=== PATIENT | male | born 1985 | race African-American/Black ===

== ENCOUNTER 2018-07-19 02:33 | Emergency (ER) | payer OTHER ==
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
[2018-07-19 02:44] VITALS: TEMP 98; BMI 27.9
[2018-07-19] MEDS ORDERED: LIDOCAINE 1%/EPI 1:100000 (20 ML MULTI DOSE VIAL) ONE (02:45)
[2018-07-19] MEDS ORDERED: DIPHTH,PERTUSS(ACELL),TET VAC 0.5 ML VIAL IM ONE (02:54)
[2018-07-19 04:28] VITALS: BP 125/89; PULSE 98
== END 2018-07-19 04:27 | disposition home or self-care (01) ==
LOC: JER 02:33
PROC: 3E0234Z Introduction of Serum, Toxoid and Vaccine into Muscle, Percutaneous Approach (ICD-10-PCS; principal; 2018-07-19)
PROC: 0CQ0XZZ Repair Upper Lip, External Approach (ICD-10-PCS; 2018-07-19)
DX: S01.511A Laceration without foreign body of lip, initial encounter (principal); X99.8XXA Assault by other sharp object, initial encounter; Y93.89 Activity, other specified; Y92.414 Local residential or business street as the place of occurrence of the external cause; Y99.8 Other external cause status; Y07.9 Unspecified perpetrator of maltreatment and neglect
CPT/HCPCS: 12011-25; 70450-TC; 70486-TC; 72125-TC; 90471; 99284-25

== ENCOUNTER 2019-10-23 19:08 | Inpatient (IN) | payer OTHER ==
[2019-10-23] MEDS ORDERED: ONDANSETRON 4 MG/2 ML VIAL IVPUSH ONE (19:31)
[2019-10-23] MEDS ORDERED: FOLIC ACID INJECTION - 1 MG, THIAMINE HCL 100 MG, MULTIVIT INJECTION ADULT 10 ML in SOD... IVPB ONE (19:31)
[2019-10-23] MEDS ORDERED: PANTOPRAZOLE SODIUM 40 MG VIAL IVPUSH ONE (19:31)
--- NOTE | 2019-10-23 19:37 | PDOC ---
History of Present Illness - General Chief Complaint: Pain, Acute Stated Complaint: VOMITING/ABD/PAIN Time Seen by Provider: 10/23/19 19:24 History Source: Patient Exam Limitations: No Limitations - History of Present Illness Travel History: No Initial Comments: 10/23/19 19:35 33-year-old male with no past medical history presents to ED with complaints of generalized fatigue, nausea and vomiting upper abdominal cramping and inability to tolerate p.o. Patient states drinks alcohol on a daily basis which she is able to hold down without vomiting patient denies change in urine pattern, diarrhea, fever, headache, head injury, chest pain, shortness of breath. Mother states patient has been an active alcoholic for the past 2 years and normally drinks with his friends and sleeps during the day. Patient denies any other drug use. Patient has not seeking alcohol detox or rehab and just wants to stop vomiting. Timing/Duration: reports: intermittent Quality: reports: mild, other (Tightness to the upper abdomen) Pain Radiation: reports: no radiation Activities at Onset: reports: none Aggravating Factors: improves with: None Alleviating Factors: improves with: None Past History - Travel History Traveled outside of the country in the last 30 days: No Close contact w/someone who was outside of country & ill: No - Medical History Allergies/Adverse Reactions: Allergies Allergy/AdvReac Type Severity Reaction Status Date / Time No Known Allergies Allergy Verified 07/19/18 02:42 Home Medications: Ambulatory Orders Ibuprofen [Motrin -] 600 mg PO QID #120 tablet 07/19/18 COPD: No - Psycho-Social/Smoking History Patient Lives Alone: No Lives with/in: parents Smoking History: Never smoked Have you smoked in the past 12 months: No - Substance Abuse Hx (Audit-C & DAST Scrn) How often the patient has a drink containing alcohol: 4 0r more times/wk Number of drinks the patient has on a typical day: 1 or 2 How often the patient has six or more drinks on one occasion: Daily or almost daily Score: In Men: 4 or > Positive; In Women: 3 or > Positive: 8 Screen Result (Pos requires Nsg. Audit-10AR): Positive In the last yr the pt used illegal drug/Rx for NonMed reason: No Score: Yes response is considered Positive: 0 Screen Result (Positive result requires Nsg. DAST-10): Negative Review of Systems - Review of Systems Able to Perform ROS?: Yes Constitutional: Yes: Loss of Appetite, Weakness HEENTM: No: Symptoms Reported Respiratory: No: Symptoms reported Cardiac (ROS): No: Symptoms Reported ABD/GI: Yes: Nausea, Poor Appetite, Poor Fluid Intake, Vomiting, Abdominal cramping : No: Symptoms Reported Musculoskeletal: Yes: Muscle Weakness Integumentary: No: Symptoms Reported Neurological: Yes: Weakness Endocrine: No: Symptoms Reported Hematologic/Lymphatic: No: Symptoms Reported *Physical Exam - Vital Signs Last Vital Signs Temp Pulse Resp BP Pulse Ox 98.8 F 120 H 19 123/87 99 10/23/19 19:14 10/23/19 19:14 10/23/19 19:14 10/23/19 19:14 10/23/19 19:14 - Physical Exam General Appearance: Yes: Nourished, Appropriately Dressed. No: Apparent Distress, Alcohol on Breath HEENT: positive: EOMI, Pharynx Normal (dry) Neck: positive: Supple Respiratory/Chest: positive: Lungs Clear, Normal Breath Sounds. negative: R espiratory Distress, Accessory Muscle Use Cardiovascular: positive: Regular Rhythm, Tachycardia. negative: Murmur Gastrointestinal/Abdominal: positive: Soft. negative: Tenderness Musculoskeletal: negative: CVA Tenderness Extremity: positive: Normal Inspection Integumentary: positive: Normal Color, Dry, Warm Neurologic: positive: Alert, Motor Strength 5/5 (ambulatory) ED Treatment Course - LABORATORY CBC & Chemistry Diagram: 10/26/19 05:16 10/29/19 06:12 Medical Decision Making - Medical Decision Making 10/23/19 19:39 Chief complaint: Nausea vomiting weakness with poor p.o. intake except for alcohol intake for the past 10 days. Patient admits to daily alcohol use but does not admit to being an alcoholic despite his mother disagreeing. No other complaints. Last drink was this morning Exam: Patient appears dry and lethargic but otherwise normal physical exam with no abdominal tenderness. Patient also tachycardic upon arrival without signs of DT or withdrawal presently Plan: Labs, urine, banana bag, meds Discharge - Discharge Information Problems reviewed: Yes Clinical Impression/Diagnosis: AA (alcohol abuse) Alcoholic pancreatitis Qualifiers: Chronicity: acute Acute pancreatitis complication: unspecified Qualified Code(s): K85.20 - Alcohol induced acute pancreatitis without necrosis or infection Nausea & vomiting Qualifiers: Vomiting type: unspecified Vomiting Intractability: non-intractable Qualified Code(s): R11.2 - Nausea with vomiting, unspecified Condition: Good Disposition: HOME - Follow up/Referral - Patient Discharge Instructions - Post Discharge Activity
[2019-10-23] MEDS ORDERED: PANTOPRAZOLE SODIUM 40 MG VIAL ONE (19:56)
[2019-10-23] MEDS ORDERED: FAMOTIDINE 20 MG/50 ML IVPB 20 MG/50 ML MG IVPB ONE ×2 (20:02→20:15)
--- NOTE | 2019-10-23 20:12 | PDOC ---
*Physical Exam - Vital Signs Last Vital Signs Temp Pulse Resp BP Pulse Ox 98.8 F 120 H 19 123/87 99 10/23/19 19:14 10/23/19 19:14 10/23/19 19:14 10/23/19 19:14 10/23/19 19:14 - Physical Exam General Appearance: Yes: Nourished, Appropriately Dressed. No: Apparent Distress HEENT: positive: Normal ENT Inspection Respiratory/Chest: negative: Respiratory Distress, Accessory Muscle Use Musculoskeletal: positive: Normal Inspection Extremity: positive: Normal Inspection, Normal Range of Motion Integumentary: positive: Normal Color Neurologic: positive: Fully Oriented, Alert, Normal Mood/Affect, Normal Respo nse, Motor Strength 06/14 ED Treatment Course - LABORATORY CBC & Chemistry Diagram: 10/23/19 20:11 10/23/19 20:11 Medical Decision Making - Medical Decision Making 10/23/19 20:10 I assumed care of this 33-year-old male with a history of alcohol abuse presented with complaint of one-week history of persistent nausea and vomiting and persistently drinking. Patient reported only able to keep alcohol down but vomited everything else. Patient pending labs. Banana bag, Pepcid, Protonix and Zofran ordered from previous provider for nausea and vomiting with from alcohol . 10/23/19 21:21 CBC shows no acute abnormality. Chemistry lab shows severely elevated lipase with elevated AST and low potassium of 2.8. Patient labs consistent with alcoholic pancreatitis. Will replace sodium and potassium. Will order ultrasound to evaluate for pancreatitis and will admit patient to medicine for alcohol pancreatitis Discharge - Discharge Information Problems reviewed: Yes Clinical Impression/Diagnosis: AA (alcohol abuse) Alcoholic pancreatitis Qualifiers: Chronicity: acute Acute pancreatitis complication: unspecified Qualified Code(s): K85.20 - Alcohol induced acute pancreatitis without necrosis or infection Nausea & vomiting Qualifiers: Vomiting type: unspecified Vomiting Intractability: non-intractable Qualified Code(s): R11.2 - Nausea with vomiting, unspecified Condition: Stable - Admission Yes - Follow up/Referral Referrals: Juan Pablo Noel MD [Primary Care Provider] - - Patient Discharge Instructions - Post Discharge Activity
[2019-10-23 20:36] LABS: BASO % 0.6 % (0-2.0); EOS % 0.1 % (0-4.5); HEMATOCRIT 39.6 % (35.4-49); HEMOGLOBIN 13.4 GM/dL (11.7-16.9); LYMPH % 5.3 % (8-40); MCH 35.9 pg (25.7-33.7); MCHC 33.9 g/dl (32.0-35.9); MEAN CELL VOLUME 105.9 fl (80-96); MEAN PLT VOLUME 8.6 fl (7.5-11.1); MONO % 12.3 % (3.8-10.2); NEUT % 81.7 % (42.8-82.8); PLATELET COUNT 212 K/MM3 (134-434); RBC 3.74 M/mm3 (4.00-5.60); RDW 15.9 % (11.9-15.9); WHITE BLOOD COUNT 8.2 K/mm3 (4.0-10.0)
[2019-10-23 21:01] LABS: ALBUMIN 3.7 g/dl (3.4-5.0); BLOOD UREA NITROGEN 12.6 mg/dL (7-18); CREATININE 0.8 mg/dL (0.55-1.3); MAGNESIUM 2.2 mg/dL (1.8-2.4)
[2019-10-23 21:09] LABS: ANISOCYTOSIS 2+; MACROCYTOSIS 2+
[2019-10-23 21:11] LABS: POTASSIUM 2.8 mmol/L (3.5-5.1)
[2019-10-23] MEDS ORDERED: SODIUM CHLORIDE 0.9%/KCL 20 MEQ/1,000 ML INFUS.BAG IV SCH (21:15)
[2019-10-23] MEDS ORDERED: POTASSIUM CHLORIDE TABS 20 MEQ TABLET.ER (FP) PO ONE (21:21)
[2019-10-23] MEDS ORDERED: POTASSIUM CHLORIDE ORAL LIQUID 20 MEQ/15 ML PO ONE (21:24)
[2019-10-23] MEDS ORDERED: POTASSIUM CHLORIDE ORAL LIQUID 20 MEQ/15 ML ONE (21:25)
[2019-10-24 01:12] LABS: POTASSIUM 2.9 mmol/L (3.5-5.1)
[2019-10-24] MEDS: HEPARIN NA (PORCINE) 5,000 UNITS/ML 1ML VIAL SQ SCH ×3 (10:12→22:56)
[2019-10-24] MEDS ORDERED: HEPARIN NA (PORCINE) 5,000 UNITS/ML 1ML VIAL ONE (10:22)
[2019-10-24 12:17] LABS: BASO % 0.5 % (0-2.0); EOS % 0.2 % (0-4.5); HEMATOCRIT 34.5 % (35.4-49); HEMOGLOBIN 11.7 GM/dL (11.7-16.9); MCH 36.1 pg (25.7-33.7); MCHC 33.9 g/dl (32.0-35.9); MEAN CELL VOLUME 106.6 fl (80-96); MONO % 13.4 % (3.8-10.2); NEUT % 76.9 % (42.8-82.8); PLATELET COUNT 175 K/MM3 (134-434); RBC 3.24 M/mm3 (4.00-5.60); RDW 15.9 % (11.9-15.9); WHITE BLOOD COUNT 7.5 K/mm3 (4.0-10.0)
[2019-10-24 12:49] LABS: AMYLASE 100 U/L (25-115)
[2019-10-24 12:53] LABS: ALBUMIN 3.1 g/dl (3.4-5.0); BILIRUBIN,TOTAL 0.9 mg/dL (0.2-1); BLOOD UREA NITROGEN 8.5 mg/dL (7-18); CALCIUM 8.6 mg/dL (8.5-10.1); CREATININE 0.6 mg/dL (0.55-1.3); TOT PROT 5.9 g/dl (6.4-8.2)
[2019-10-24 12:54] LABS: LIPASE 4160 U/L (73-393)
[2019-10-24 13:10] LABS: POTASSIUM 2.9 mmol/L (3.5-5.1)
[2019-10-24] MEDS ORDERED: POTASSIUM CHLORIDE TABS 20 MEQ TABLET.ER (FP) PO ONE (13:10)
[2019-10-24] MEDS ORDERED: DEXTROSE 5%-0.45% SALINE 1,000 ML IV SCH (13:15)
[2019-10-24] MEDS: THIAMINE HCL 100 MG TABLET (FP) PO SCH (15:00)
[2019-10-24] MEDS: FOLIC ACID 1 MG TABLET (FP) PO SCH (15:00)
[2019-10-24] MEDS: chlordiazePOXIDE HCL 25 MG CAPSULE PO SCH ×2 (15:00→22:56)
[2019-10-24] MEDS ORDERED: THIAMINE HCL 100 MG TABLET (FP) ONE (15:06)
[2019-10-24] MEDS ORDERED: chlordiazePOXIDE HCL 25 MG CAPSULE ONE (15:06)
[2019-10-24] MEDS ORDERED: KCL 10 MEQ IVPB 10 MEQ/100 ML INFUS.BAG IVPB ONE ×2 (15:07→16:25)
[2019-10-24] MEDS ORDERED: POTASSIUM CHLORIDE ORAL LIQUID 20 MEQ/15 ML ONE (15:07)
[2019-10-24] MEDS: D5-1/2NS+20 MEQ KCL - 20 MEQ/1,000 ML INFUS.BAG IV SCH (15:18)
[2019-10-24] MEDS: KCL 10 MEQ IVPB 10 MEQ/100 ML INFUS.BAG IVPB SCH ×3 (15:24→17:29)
--- NOTE | 2019-10-24 15:45 | CON.GI ---
Consult Consult Specialty:: GI - History of Present Illness History of Present Illness: 33 y/o male was asked to be see because of intractable vomiting. He has been drinking alcohol excessively the past two years. He drinks 1-2 pints of liquor per day. He denies need of any eye waste duster and withdrawal symptoms. - Alcohol/Substance Use Hx Alcohol Use: No - Smoking History Smoking history: Never smoked Have you smoked in the past 12 months: No Home Medications - Allergies Allergies/Adverse Reactions: Allergies Allergy/AdvReac Type Severity Reaction Status Date / Time No Known Allergies Allergy Verified 07/19/18 02:42 - Home Medications Home Medications: Ambulatory Orders Ibuprofen [Motrin -] 600 mg PO QID #120 tablet 07/19/18 Physical Exam-GI Vital Signs: Vital Signs Temperature 98.7 F 10/24/19 09:44 Pulse Rate 88 10/24/19 09:44 Respiratory Rate 10/24/19 09:44 Blood Pressure 140/89 10/24/19 09:44 O2 Sat by Pulse Oximetry (%) 99 10/24/19 09:44 Constitutional: Yes: No Distress Eyes: Yes: Conjunctiva Clear HENT: Yes: Atraumatic Neck: Yes: Trachea Midline Cardiovascular: Yes: Regular Rate and Rhythm Respiratory: Yes: CTA Bilaterally ...Palpate: Yes: Soft. No: Firm/Rigid, Guarding, Hepatomegaly, Mass, Pulsatile Mass, Splenomegaly, Tenderness Labs: CBC, BMP 10/24/19 11:25 10/24/19 11:25 Problem List - Problems (1) Nausea & vomiting Assessment/Plan: IV Zofran, Pantoprazole and Reglan IV hydration Code(s): R11.2 - NAUSEA WITH VOMITING, UNSPECIFIED Qualifiers: Vomiting type: unspecified Vomiting Intractability: non-intractable Qualified Code(s): R11.2 - Nausea with vomiting, unspecified (2) Alcoholic pancreatitis Assessment/Plan: IV hydration asked to join AA advance diet as tolerated ct of the abdomen and pelvis if not done recently Code(s): K85.20 - ALCOHOL INDUCED ACUTE PANCREATITIS WITHOUT NECROSIS OR INFCT Qualifiers: Chronicity: acute Acute pancreatitis complication: unspecified Qualified Code(s): K85.20 - Alcohol induced acute pancreatitis without necrosis or infection
[2019-10-24] MEDS ORDERED: ONDANSETRON 4 MG/2 ML VIAL IVPB PRN (15:47)
[2019-10-24] MEDS: METOCLOPRAMIDE HCL INJECTION 10 MG/2 ML VIAL IVPB SCH (16:22)
[2019-10-24] MEDS ORDERED: METOCLOPRAMIDE HCL INJECTION 10 MG/2 ML VIAL ONE (16:25)
--- NOTE | 2019-10-24 16:34 | HP ---
Admitting History and Physical - Admission History of Present Illness: Pt is a 33 y/o male w/ PMH significant for EtOH abuse. Pt has been drinking pint of vodka daily for at least 2 yrs. Pt's mother is present who agrees w/ etoh consumption. Pt presents to ED with complaints of generalized fatigue, nausea and vomiting upper abdominal cramping and inability to tolerate p.o. Patient states drinks alcohol on a daily basis which he is able to hold down without vomiting. Pt found to have elevated lipase and K+ 2.8. - Past Medical History Psych: Yes: Addictions - Smoking History Smoking history: Never smoked Have you smoked in the past 12 months: No - Alcohol/Substance Use Hx Alcohol Use: No Home Medications - Allergies Allergies/Adverse Reactions: Allergies Allergy/AdvReac Type Severity Reaction Status Date / Time No Known Allergies Allergy Verified 07/19/18 02:42 - Home Medications Home Medications: Ambulatory Orders Ibuprofen [Motrin -] 600 mg PO QID #120 tablet 07/19/18 Family Medical History Family History: Unremarkable Review of Systems - Review of Systems Constitutional: reports: Loss of Appetite, Weakness Eyes: reports: No Symptoms HENT: reports: No Symptoms Neck: reports: No Symptoms Cardiovascular: reports: No Symptoms Respiratory: reports: No Symptoms Gastrointestinal: reports: Nausea, Vomiting Genitourinary: reports: No Symptoms Physical Examination Vital Signs: Vital Signs Temperature 98.9 F 10/24/19 16:08 Pulse Rate 89 10/24/19 16:08 Respiratory Rate 19 10/24/19 16:08 Blood Pressure 124/91 10/24/19 16:08 O2 Sat by Pulse Oximetry (%) 99 10/24/19 16:08 Eyes: Yes: WNL HENT: Yes: WNL Neck: Yes: WNL, Supple Cardiovascular: Yes: WNL, Regular Rate and Rhythm Respiratory: Yes: WNL, Regular, CTA Bilaterally Gastrointestinal: Yes: WNL, Normal Bowel Sounds, Soft Musculoskeletal: Yes: WNL Extremities: Yes: Other (Slight tremor of b/l hands) Edema: No Neurological: Yes: WNL, Alert, Oriented ...Motor Strength: WNL Labs: CBC, BMP 10/24/19 11:25 10/24/19 11:25 Problem List - Problems (1) Alcoholic pancreatitis Assessment/Plan: Pt has been NPO Will advance diet to clear liquids GI consult noted Long d/w pt and mother about need for etoh cessation Check ct scan abd/pelvis Cont IVF Monitor labs Code(s): K85.20 - ALCOHOL INDUCED ACUTE PANCREATITIS WITHOUT NECROSIS OR INFCT Qualifiers: Chronicity: acute Acute pancreatitis complication: unspecified Qualified Code(s): K85.20 - Alcohol induced acute pancreatitis without necrosis or infection (2) Nausea & vomiting Assessment/Plan: Resolving ont zofran prn Cont protonix Replace K+MOnitor labs Code(s): R11.2 - NAUSEA WITH VOMITING, UNSPECIFIED Qualifiers: Vomiting type: unspecified Vomiting Intractability: non-intractable Qualified Code(s): R11.2 - Nausea with vomiting, unspecified (3) Alcohol withdrawal Assessment/Plan: Will start librium taper sales merchandising specialist consult Cont thiamine/folic acid Psych consult Code(s): F10.239 - ALCOHOL DEPENDENCE WITH WITHDRAWAL, UNSPECIFIED (4) AA (alcohol abuse) Code(s): F10.10 - ALCOHOL ABUSE, UNCOMPLICATED
[2019-10-24 17:07] VITALS: BMI 27.2
[2019-10-24] MEDS ORDERED: chlordiazePOXIDE HCL 25 MG CAPSULE PO SCH (18:00)
[2019-10-24 21:06] LABS: EPI CELLS >36 /uL (0-25.1); HYALINE CASTS 11 /uL (0-3.1); PH,URINE 8.5 (5.0-8.0); URINE APPEARANCE CLOUDY; URINE BACTERIA >9,000 /uL (0-1359); URINE BILIRUBIN NEGATIVE (NEGATIVE); URINE COLOR YELLOW; URINE GLUCOSE (UA) NEGATIVE (NEGATIVE); URINE KETONE TRACE (NEGATIVE); URINE LEUK ESTERASE 3+ (NEGATIVE); URINE NITRITE NEGATIVE (NEGATIVE); URINE PROTEIN NEGATIVE (NEGATIVE); URINE RBC 5 /uL (0-23.9); URINE WBC 47 /uL (0-25.8)
[2019-10-24 21:12] LABS: COCAINE, UR NEGATIVE ng/ml (CUTOFF=300); OPIATES, URI NEGATIVE ng/ml (CUTOFF=300); PHENCYCLIDINE,URINE NEGATIVE ng/ml (CUTOFF=25); URINE AMPHETAMINES NEGATIVE ng/ml (CUTOFF=500); URINE BARBITURATES NEGATIVE ng/ml (CUTOFF=200); URINE BENZODIAZEPINES NEGATIVE ng/ml (CUTOFF=200)
[2019-10-24 21:15] LABS: METHADONE, UR NEGATIVE ng/ml (CUTOFF=300)
[2019-10-24] MEDS ORDERED: PANTOPRAZOLE SODIUM 40 MG in SODIUM CHLORIDE 100 ML IVPB SCH (22:00)
[2019-10-24] MEDS: PANTOPRAZOLE SODIUM 40 MG VIAL IVPUSH SCH (22:56)
[2019-10-25] MEDS: METOCLOPRAMIDE HCL INJECTION 10 MG/2 ML VIAL IVPB SCH ×3 (01:00→17:17)
[2019-10-25] MEDS: D5-1/2NS+20 MEQ KCL - 20 MEQ/1,000 ML INFUS.BAG IV SCH ×2 (03:11→14:14)
[2019-10-25] MEDS: chlordiazePOXIDE HCL 25 MG CAPSULE PO SCH ×3 (07:04→21:49)
[2019-10-25 07:20] LABS: BASO % 1.3 % (0-2.0); EOS % 0.4 % (0-4.5); HEMATOCRIT 32.3 % (35.4-49); HEMOGLOBIN 10.9 GM/dL (11.7-16.9); LYMPH % 14.1 % (8-40); MCH 35.9 pg (25.7-33.7); MCHC 33.8 g/dl (32.0-35.9); MEAN CELL VOLUME 106.2 fl (80-96); MEAN PLT VOLUME 8.6 fl (7.5-11.1); MONO % 17.4 % (3.8-10.2); NEUT % 66.8 % (42.8-82.8); PLATELET COUNT 176 K/MM3 (134-434); RBC 3.04 M/mm3 (4.00-5.60); RDW 16.2 % (11.9-15.9); WHITE BLOOD COUNT 5.3 K/mm3 (4.0-10.0)
[2019-10-25 07:58] LABS: POTASSIUM 3.2 mmol/L (3.5-5.1)
[2019-10-25 08:14] LABS: ALBUMIN 2.8 g/dl (3.4-5.0); BILIRUBIN,TOTAL 0.8 mg/dL (0.2-1); BLOOD UREA NITROGEN 4.8 mg/dL (7-18); CREATININE 0.6 mg/dL (0.55-1.3); TOT PROT 5.6 g/dl (6.4-8.2)
[2019-10-25 08:21] LABS: AMYLASE 119 U/L (25-115)
[2019-10-25 08:30] LABS: LIPASE 3651 U/L (73-393)
--- NOTE | 2019-10-25 08:57 | CONSULT ---
Consult Detox [facility] Reason for Current Admission/Consult: 34 yo with a hx of alcohol use disorder, admitted with nausea and vomitting. We are asked to consult for alcohol withdrawal. Referred by:: Dr. Sood - History History of Present Illness: Pt is a 34 y/o male w/ PMH significant for EtOH abuse. Substance use hx: Pt has been drinking pint of vodka daily for at least 2 yrs. Pt's mother is present who agrees w/ etoh consumption. Pt presents to ED with complaints of generalized fatigue, nausea and vomiting upper abdominal cramping and inability to tolerate p.o. Patient states drinks alcohol on a daily basis which he is able to hold down without vomiting. Pt found to have elevated lipase and K+ 2.8. Laboratory Tests 10/23/19 10/23/19 10/23/19 20:11 20:11 20:11 WBC 8.2 RBC 3.74 L Hgb 13.4 Hct 39.6 MCV 105.9 H MCH 35.9 H MCHC 33.9 RDW 15.9 Plt Count 212 MPV 8.6 Absolute Neuts (auto) 6.7 Neutrophils % 81.7 Lymphocytes % 5.3 L Monocytes % 12.3 H Eosinophils % 0.1 Basophils % 0.6 Nucleated RBC % 0 Anisocytosis 2+ Macrocytosis 2+ Sodium 128 L Potassium 2.8 L* Chloride 83 L Carbon Dioxide 31 Anion Gap 14 BUN 12.6 Creatinine 0.8 Est GFR (CKD-EPI)AfAm 137.96 Est GFR (CKD-EPI)NonAf 119.03 Random Glucose 155 H Calcium 9.0 Magnesium 2.2 Total Bilirubin 1.0 AST 290 H ALT 43 Alkaline Phosphatase 126 H Creatine Kinase Creatine Kinase Index CK-MB (CK-2) Troponin I Total Protein 7.0 Albumin 3.7 Total Amylase Lipase 5061 H Urine Color Urine Appearance Urine pH Ur Specific [place] Urine Protein Urine Glucose (UA) Urine Ketones Urine Blood Urine Nitrite Urine Bilirubin Urine Urobilinogen Ur Leukocyte Esterase Urine WBC (Auto) Urine RBC (Auto) Urine Casts (Auto) U Epithel Cells (Auto) U Sm Round Cell (Auto) Urine Bacteria (Auto) Opiates Screen Methadone Screen Barbiturate Screen Phencyclidine Screen Ur Amphetamines Screen MDMA (Ecstasy) Screen Benzodiazepines Screen Cocaine Screen U Marijuana (THC) Screen Alcohol, Quantitative 78.2 H 10/23/19 10/24/1910/23/20 20:11 00:13 00:13 WBC RBC Hgb Hct MCV MCH MCHC RDW Plt Count MPV Absolute Neuts (auto) Neutrophils % Lymphocytes % Monocytes % Eosinophils % Basophils % Nucleated RBC % Anisocytosis Macrocytosis Sodium Potassium 2.9 L* Cancelled Chloride Carbon Dioxide Anion Gap BUN Creatinine Est GFR (CKD-EPI)AfAm Est GFR (CKD-EPI)NonAf Random Glucose Calcium Magnesium Total Bilirubin AST ALT Alkaline Phosphatase Creatine Kinase 156 Creatine Kinase Index 1.4 CK-MB (CK-2) 2.3 Troponin I < 0.02 < 0.02 Total Protein Albumin Total Amylase Lipase Urine Color Urine Appearance Urine pH Ur Specific [place] Urine Protein Urine Glucose (UA) Urine Ketones Urine Blood Urine Nitrite Urine Bilirubin Urine Urobilinogen Ur Leukocyte Esterase Urine WBC (Auto) Urine RBC (Auto) Urine Casts (Auto) U Epithel Cells (Auto) U Sm Round Cell (Auto) Urine Bacteria (Auto) Opiates Screen Methadone Screen Barbiturate Screen Phencyclidine Screen Ur Amphetamines Screen MDMA (Ecstasy) Screen Benzodiazepines Screen Cocaine Screen U Marijuana (THC) Screen Alcohol, Quantitative 10/24/19 10/24/19 10/24/19 11:25 11:25 11:25 WBC 7.5 RBC 3.24 L Hgb 11.7 Hct 34.5 L MCV 106.6 H MCH 36.1 H MCHC 33.9 RDW 15.9 Plt Count 175 MPV 9.0 Absolute Neuts (auto) 5.7 Neutrophils % 76.9 Lymphocytes % 9.0 D Monocytes % 13.4 H Eosinophils % 0.2 D Basophils % 0.5 Nucleated RBC % 0 Anisocytosis Macrocytosis Sodium 135 L Potassium 2.9 L* Chloride 93 L Carbon Dioxide 33 H Anion Gap 10 BUN 8.5 Creatinine 0.6 Est GFR (CKD-EPI)AfAm 155.28 Est GFR (CKD-EPI)NonAf 133.97 Random Glucose 92 Calcium 8.6 Magnesium Total Bilirubin 0.9 AST 233 H ALT 35 Alkaline Phosphatase 107 Creatine Kinase Creatine Kinase Index CK-MB (CK-2) Troponin I Total Protein 5.9 L Albumin 3.1 L Total Amylase 100 Lipase 4160 H Urine Color Urine Appearance Urine pH Ur Specific [place] Urine Protein Urine Glucose (UA) Urine Ketones Urine Blood Urine Nitrite Urine Bilirubin Urine Urobilinogen Ur Leukocyte Esterase Urine WBC (Auto) Urine RBC (Auto) Urine Casts (Auto) U Epithel Cells (Auto) U Sm Round Cell (Auto) Urine Bacteria (Auto) Opiates Screen Methadone Screen Barbiturate Screen Phencyclidine Screen Ur Amphetamines Screen MDMA (Ecstasy) Screen Benzodiazepines Screen Cocaine Screen U Marijuana (THC) Screen Alcohol, Quantitative 10/24/19 10/24/19 10/25/19 20:30 20:30 06:54 WBC 5.3 RBC 3.04 L Hgb 10.9 L Hct 32.3 L MCV 106.2 H MCH 35.9 H MCHC 33.8 RDW 16.2 H Plt Count 176 MPV 8.6 Absolute Neuts (auto) 3.6 Neutrophils % 66.8 Lymphocytes % 14.1 D Monocytes % 17.4 H Eosinophils % 0.4 D Basophils % 1.3 Nucleated RBC % 0 Anisocytosis Macrocytosis Sodium Potassium Chloride Carbon Dioxide Anion Gap BUN Creatinine Est GFR (CKD-EPI)AfAm Est GFR (CKD-EPI)NonAf Random Glucose Calcium Magnesium Total Bilirubin AST ALT Alkaline Phosphatase Creatine Kinase Creatine Kinase Index CK-MB (CK-2) Troponin I Total Protein Albumin Total Amylase Lipase Urine Color Yellow Urine Appearance Cloudy Urine pH 8.5 H Ur Specific [place] 1.007 L Urine Protein Negative Urine Glucose (UA) Negative Urine Ketones Trace H Urine Blood 3+ H Urine Nitrite Negative Urine Bilirubin Negative Urine Urobilinogen 1.0 Ur Leukocyte Esterase 3+ H Urine WBC (Auto) 47 Urine RBC (Auto) 5 Urine Casts (Auto) 11 U Epithel Cells (Auto) >36 U Sm Round Cell (Auto) Moderate Urine Bacteria (Auto) >9,000 Opiates Screen Negative Methadone Screen Negative Barbiturate Screen Negative Phencyclidine Screen Negative Ur Amphetamines Screen Negative MDMA (Ecstasy) Screen Negative Benzodiazepines Screen Negative Cocaine Screen Negative U Marijuana (THC) Screen Negative Alcohol, Quantitative 10/25/19 10/25/19 06:54 06:54 WBC RBC Hgb Hct MCV MCH MCHC RDW Plt Count MPV Absolute Neuts (auto) Neutrophils % Lymphocytes % Monocytes % Eosinophils % Basophils % Nucleated RBC % Anisocytosis Macrocytosis Sodium 137 Potassium 3.2 L Chloride 99 Carbon Dioxide 30 Anion Gap 8 BUN 4.8 L Creatinine 0.6 Est GFR (CKD-EPI)AfAm 154.19 Est GFR (CKD-EPI)NonAf 133.04 Random Glucose 106 Calcium 8.0 L Magnesium Total Bilirubin 0.8 AST 211 H ALT 37 Alkaline Phosphatase 102 Creatine Kinase Creatine Kinase Index CK-MB (CK-2) Troponin I Total Protein 5.6 L Albumin 2.8 L Total Amylase 119 H Lipase 3651 H Urine Color Urine Appearance Urine pH Ur Specific [place] Urine Protein Urine Glucose (UA) Urine Ketones Urine Blood Urine Nitrite Urine Bilirubin Urine Urobilinogen Ur Leukocyte Esterase Urine WBC (Auto) Urine RBC (Auto) Urine Casts (Auto) U Epithel Cells (Auto) U Sm Round Cell (Auto) Urine Bacteria (Auto) Opiates Screen Methadone Screen Barbiturate Screen Phencyclidine Screen Ur Amphetamines Screen MDMA (Ecstasy) Screen Benzodiazepines Screen Cocaine Screen U Marijuana (THC) Screen Alcohol, Quantitative Active Medications Generic Name Dose Route Start Last Admin Trade Name Freq PRN Reason Stop Dose Admin Chlordiazepoxide HCl 25 mg 10/24/19 14:00 10/25/19 07:04 Librium - PO 25 mg TID ASHLEY Administration Folic Acid 1 mg 10/24/19 13:15 10/24/19 15:00 Folic Acid - PO 1 mg DAILY ASHLEY Administration Heparin Sodium (Porcine) 5,000 unit 10/24/19 10:00 10/24/19 22:56 Heparin - SQ 5,000 unit BID ASHLEY Administration Potassium Chloride/Dextrose/Sod Cl 20 meq in 1,000 mls @ 125 mls/hr 10/24/19 13:24 10/25/19 03:11 D5-1/2ns+20 Meq Kcl - IV 125 mls/hr ASDIR ASHLEY Administration Metoclopramide HCl 10 mg 10/24/19 16:00 10/25/19 01:00 Reglan Injection - IVPB 10 mg Q8H ASHLEY Administration Ondansetron HCl 4 mg 10/24/19 15:47 Zofran Injection IVPB Q4H PRN NAUSEA AND/OR VOMITING Pantoprazole Sodium 40 mg 10/24/19 22:00 10/24/19 22:56 Protonix Iv IVPUSH 40 mg BID ASHLEY Administration Thiamine HCl 100 mg 10/24/19 13:15 10/24/19 15:00 Vitamin B1 - PO 100 mg DAILY ASHLEY Administration Vital Signs Temperature 98.3 F 10/25/19 02:00 Pulse Rate 88 10/25/19 07:02 Respiratory Rate 18 10/25/19 07:02 Blood Pressure 112/76 10/25/19 07:02 O2 Sat by Pulse Oximetry (%) 100 10/25/19 02:00 34 yo man admitted 10/23 with nausea and vomitting. On laboratory investigation found to have low potassium, elevated lipase and dx with pancreatitis. Imp 1. Alcohol use disorder 2. Pancreatitis Plan 1. will change to Librium detox protocol and d/c Librium 25 mg tid. - History Source History Provided By: Medical Record - Alcohol/Substance Use Hx Alcohol Use: Yes - Past Medical History Psych: Yes: Addictions Assessment Plan - Diagnosis (1) Alcohol use disorder Status: Acute - Medication Detox Regimen/Protocol: Librium
[2019-10-25] MEDS ORDERED: chlordiazePOXIDE HCL 25 MG CAPSULE PO PRN (08:58)
[2019-10-25] MEDS: PANTOPRAZOLE SODIUM 40 MG VIAL IVPUSH SCH ×2 (10:23→21:50)
[2019-10-25] MEDS: HEPARIN NA (PORCINE) 5,000 UNITS/ML 1ML VIAL SQ SCH ×2 (10:23→21:49)
[2019-10-25] MEDS: FOLIC ACID 1 MG TABLET (FP) PO SCH (10:24)
[2019-10-25] MEDS: THIAMINE HCL 100 MG TABLET (FP) PO SCH (10:24)
--- NOTE | 2019-10-25 10:58 | EKG ---
Test Reason : Blood Pressure : / mmHG Vent. Rate : 100 BPM Atrial Rate : 100 BPM P-R Int : 140 ms QRS Dur : 092 ms QT Int : 460 ms P-R-T Axes : 073 055 -65 degrees QTc Int : 593 ms NORMAL SINUS RHYTHM T WAVE ABNORMALITY, CONSIDER INFERIOR ISCHEMIA T WAVE ABNORMALITY, CONSIDER ANTEROLATERAL ISCHEMIA PROLONGED QT ABNORMAL ECG NO PREVIOUS ECGS AVAILABLE Confirmed by EDMOND PAT MD ([id number]) on 10/25/2019 10:58:23 AM Referred By: Confirmed By:EDMOND PAT MD
[2019-10-25] MEDS ORDERED: POTASSIUM CHLORIDE TABS 20 MEQ TABLET.ER (FP) PO ONE (11:41)
--- NOTE | 2019-10-25 16:39 | CONSULT ---
Consult Consult Specialty:: Surgery Reason for Consultation:: gb sludge, pancreatitis - History of Present Illness Chief Complaint: vomiting History of Present Illness: 34 y.o. male admitted for presumptive dx of alcoholic pancreatitis from alcohol abuse. CT & US showed hepatomegaly, mild pancreatitis and GB sludge, no dilated CBD. Currently on clear liquid diet and denies abdominal pain. Also on alchohol wihtdrawal Rx. - History Source History Provided By: Patient - Past Medical History Psych: Yes: Addictions - Alcohol/Substance Use Hx Alcohol Use: Yes - Smoking History Smoking history: Never smoked Have you smoked in the past 12 months: No Home Medications - Allergies Allergies/Adverse Reactions: Allergies Allergy/AdvReac Type Severity Reaction Status Date / Time No Known Allergies Allergy Verified 07/19/18 02:42 - Home Medications Home Medications: Ambulatory Orders Ibuprofen [Motrin -] 600 mg PO QID #120 tablet 07/19/18 Family Medical History Family History: Unremarkable Review of Systems - Review of Systems Constitutional: reports: No Symptoms Eyes: reports: No Symptoms HENT: reports: No Symptoms Neck: reports: No Symptoms Cardiovascular: reports: No Symptoms Respiratory: reports: No Symptoms Gastrointestinal: reports: No Symptoms Physical Exam Vital Signs: Vital Signs Temperature 99.5 F 10/25/19 14:00 Pulse Rate 110 H 10/25/19 14:00 Respiratory Rate 22 H 10/25/19 14:00 Blood Pressure 100/64 10/25/19 14:00 O2 Sat by Pulse Oximetry (%) 100 10/25/19 14:00 Constitutional: Yes: No Distress Eyes: Yes: Conjunctiva Clear HENT: Yes: Normocephalic Neck: Yes: Supple Cardiovascular: Yes: Regular Rate and Rhythm Respiratory: Yes: CTA Bilaterally Gastrointestinal: Yes: Soft, Tenderness (none) Extremities: Yes: WNL Edema: No Integumentary: Yes: WNL Neurological: Yes: Alert, Oriented Labs: CBC, BMP 10/25/19 06:54 10/25/19 06:54 Imaging - Results Cat Scan: Report Reviewed, Image Reviewed Ultrasound: Report Reviewed, Image Reviewed Problem List - Problems (1) Alcoholic pancreatitis Assessment/Plan: unlikely gallstone pancreatitis No surgical intervention necessary at this time Continue Librium protocol for alcohol withdrawal Will F/U as OP Code(s): K85.20 - ALCOHOL INDUCED ACUTE PANCREATITIS WITHOUT NECROSIS OR INFCT Qualifiers: Chronicity: acute Acute pancreatitis complication: unspecified Qualified Code(s): K85.20 - Alcohol induced acute pancreatitis without necrosis or infection
--- NOTE | 2019-10-25 21:02 | PN ---
Progress Note, Physician History of Present Illness: No new complaints - Current Medication List Current Medications: Active Medications Chlordiazepoxide HCl (Librium -) 25 mg PO Q4H PRN PRN Reason: WITHDRAWAL(CONT SUBST) Stop: 10/27/19 23:59 Chlordiazepoxide HCl (Librium -) 10 mg PO [id number] [facility] Stop: 10/26/19 23:01 Chlordiazepoxide HCl (Librium -) 10 mg PO Q12H [facility] Stop: 10/27/19 17:01 Chlordiazepoxide HCl (Librium -) 10 mg PO Q4H PRN PRN Reason: WITHDRAWAL(CONT SUBST) Stop: 10/29/19 00:00 Chlordiazepoxide HCl (Librium -) 10 mg PO ONCE@0500 ONE Stop: 10/28/19 05:01 Chlordiazepoxide HCl (Librium -) 25 mg PO TID [facility] Stop: 10/25/19 22:00 Last Admin: 10/25/19 14:17 Dose: 25 mg Documented by: Folic Acid (Folic Acid -) 1 mg PO DAILY [facility] Last Admin: 10/25/19 10:24 Dose: 1 mg Documented by: Heparin Sodium (Porcine) (Heparin -) 5,000 unit SQ BID [facility] Last Admin: 10/25/19 10:23 Dose: 5,000 unit Documented by: Potassium Chloride/Dextrose/Sod Cl (D5-1/2ns+20 Meq Kcl -) 20 meq in 1,000 mls @ 125 mls/hr IV ASDIR [facility] Last Admin: 10/25/19 14:14 Dose: 125 mls/hr Documented by: Metoclopramide HCl (Reglan Injection -) 10 mg IVPB Q8H [facility] Last Admin: 10/25/19 17:17 Dose: 10 mg Documented by: Ondansetron HCl (Zofran Injection) 4 mg IVPB Q4H PRN PRN Reason: NAUSEA AND/OR VOMITING Pantoprazole Sodium (Protonix Iv) 40 mg IVPUSH BID [facility] Last Admin: 10/25/19 10:23 Dose: 40 mg Documented by: Thiamine HCl (Vitamin B1 -) 100 mg PO DAILY [facility] Last Admin: 10/25/19 10:24 Dose: 100 mg Documented by: - Objective Vital Signs: Vital Signs Temperature 98.8 F 10/25/19 19:50 Pulse Rate 99 H 10/25/19 19:50 Respiratory Rate 22 H 10/25/19 19:50 Blood Pressure 98/68 10/25/19 19:50 O2 Sat by Pulse Oximetry (%) 99 10/25/19 19:50 Neck: Yes: WNL, Supple Cardiovascular: Yes: WNL, Regular Rate and Rhythm Respiratory: Yes: WNL, Regular, CTA Bilaterally Gastrointestinal: Yes: WNL, Normal Bowel Sounds, Soft Labs: CBC, BMP 10/25/19 06:54 10/25/19 06:54 Problem List - Problems (1) Alcoholic pancreatitis Assessment/Plan: Advance diet to full liquids GI consult noted Long d/w pt and mother about need for etoh cessation Ct scan abd/pelvis showed acute pancreatitis and fatty liver Cont IVF Monitor labs Code(s): K85.20 - ALCOHOL INDUCED ACUTE PANCREATITIS WITHOUT NECROSIS OR INFCT Qualifiers: Chronicity: acute Acute pancreatitis complication: unspecified Qualified Code(s): K85.20 - Alcohol induced acute pancreatitis without necrosis or infection (2) Nausea & vomiting Assessment/Plan: Resolving Cont zofran prn Cont protonix Monitor labs Replace K+ Code(s): R11.2 - NAUSEA WITH VOMITING, UNSPECIFIED Qualifiers: Vomiting type: unspecified Vomiting Intractability: non-intractable Qualified Code(s): R11.2 - Nausea with vomiting, unspecified (3) Alcohol withdrawal Assessment/Plan: Cont librium taper philosophy specialist consult noted Cont thiamine/folic acid Code(s): F10.239 - ALCOHOL DEPENDENCE WITH WITHDRAWAL, UNSPECIFIED (4) AA (alcohol abuse) Code(s): F10.10 - ALCOHOL ABUSE, UNCOMPLICATED
[2019-10-26] MEDS: METOCLOPRAMIDE HCL INJECTION 10 MG/2 ML VIAL IVPB SCH ×3 (00:35→17:12)
[2019-10-26] MEDS: chlordiazePOXIDE HCL 10 MG CAPSULE PO SCH ×4 (05:05→22:08)
[2019-10-26 07:03] LABS: BASO % 1.3 % (0-2.0); HEMATOCRIT 32.6 % (35.4-49); HEMOGLOBIN 10.7 GM/dL (11.7-16.9); LYMPH % 12.7 % (8-40); MCH 35.2 pg (25.7-33.7); MCHC 32.8 g/dl (32.0-35.9); MEAN CELL VOLUME 107.5 fl (80-96); MEAN PLT VOLUME 8.6 fl (7.5-11.1); MONO % 14.1 % (3.8-10.2); NEUT % 70.9 % (42.8-82.8); PLATELET COUNT 178 K/MM3 (134-434); RBC 3.03 M/mm3 (4.00-5.60); RDW 16.4 % (11.9-15.9); WHITE BLOOD COUNT 5.1 K/mm3 (4.0-10.0)
[2019-10-26 07:36] LABS: ALBUMIN 2.7 g/dl (3.4-5.0); BILIRUBIN,TOTAL 0.9 mg/dL (0.2-1); BLOOD UREA NITROGEN 3.5 mg/dL (7-18); CALCIUM 8.1 mg/dL (8.5-10.1); CREATININE 0.6 mg/dL (0.55-1.3); POTASSIUM 3.6 mmol/L (3.5-5.1); TOT PROT 5.2 g/dl (6.4-8.2)
[2019-10-26] MEDS: PANTOPRAZOLE SODIUM 40 MG VIAL IVPUSH SCH ×2 (10:06→21:43)
[2019-10-26] MEDS: HEPARIN NA (PORCINE) 5,000 UNITS/ML 1ML VIAL SQ SCH ×2 (10:06→21:42)
[2019-10-26] MEDS: FOLIC ACID 1 MG TABLET (FP) PO SCH (10:06)
[2019-10-26] MEDS: THIAMINE HCL 100 MG TABLET (FP) PO SCH (10:07)
[2019-10-26] MEDS: D5-1/2NS+20 MEQ KCL - 20 MEQ/1,000 ML INFUS.BAG IV SCH ×2 (10:07→21:00)
--- NOTE | 2019-10-26 15:45 | CON.PSY ---
Psychiatry Consult Chief Complaint: 34 year old male with a history of Alcohol dependence and abuse..seen for Psych eval for ? Depression. on detox. Patient denies any Psych illness.. - Previous Psychiatric Treatment Outpatient: None Inpatient: None - Previous Substance Abuse Treatment Outpatient: None Inpatient: None - Reason for Previous Treatment Reason for Previous Treatment: Alcohol Abuse - Current Medications Current Medications: Active Medications Chlordiazepoxide HCl (Librium -) 25 mg PO Q4H PRN PRN Reason: WITHDRAWAL(CONT SUBST) Stop: 10/27/19 23:59 Chlordiazepoxide HCl (Librium -) 10 mg PO [id number] ASHLEY Stop: 10/26/19 23:01 Last Admin: 10/26/19 10:14 Dose: 10 mg Documented by: Chlordiazepoxide HCl (Librium -) 10 mg PO Q12H [facility] Stop: 10/27/19 17:01 Chlordiazepoxide HCl (Librium -) 10 mg PO Q4H PRN PRN Reason: WITHDRAWAL(CONT SUBST) Stop: 10/29/19 00:00 Chlordiazepoxide HCl (Librium -) 10 mg PO ONCE@0500 ONE Stop: 10/28/19 05:01 Folic Acid (Folic Acid -) 1 mg PO DAILY [facility] Last Admin: 10/26/19 10:06 Dose: 1 mg Documented by: Heparin Sodium (Porcine) (Heparin -) 5,000 unit SQ BID [facility] Last Admin: 10/26/19 10:06 Dose: 5,000 unit Documented by: Potassium Chloride/Dextrose/Sod Cl (D5-1/2ns+20 Meq Kcl -) 20 meq in 1,000 mls @ 125 mls/hr IV ASDIR [facility] Last Admin: 10/26/19 10:07 Dose: 125 mls/hr Documented by: Metoclopramide HCl (Reglan Injection -) 10 mg IVPB Q8H [facility] Last Admin: 10/26/19 10:06 Dose: 10 mg Documented by: Ondansetron HCl (Zofran Injection) 4 mg IVPB Q4H PRN PRN Reason: NAUSEA AND/OR VOMITING Pantoprazole Sodium (Protonix Iv) 40 mg IVPUSH BID [facility] Last Admin: 10/26/19 10:06 Dose: 40 mg Documented by: Thiamine HCl (Vitamin B1 -) 100 mg PO DAILY [facility] Last Admin: 09/15/20 10:07 Dose: 100 mg Documented by: - Allergies Allergies: Allergies Allergy/AdvReac Type Severity Reaction Status Date / Time No Known Allergies Allergy Verified 07/19/18 02:42 - Current Living Status Usual Living Arrangement: With Significant Other - Current Mental Status Evaluation Appearance: Well Groomed Attitude: Cooperative - Affect Affect: Constrictive Appropriateness: Appropriate to Content - Mood Mood: Anxious - Speech/Language Expressive: Coherent - Psychomotor Activity Psychomotor Activity: Slowed - Thought Process Thought Process: Intact - Thought Content Hallucinations: Absent Delusions: Absent - Self Perception Self Perception: No Impairment - Cognition Attention: Alert Orientation: Time Memory, Immediate Recall: Intact Memory, Short Term: 3/3 Memory, Remote with Promptin/3 - Concentration Serial Sevens Intact: Yes Simple Calculations Intact: Yes - Abstraction Judgement: Minimally Impaired - Insight Insight: Intact - Impulse Control Impulse Control: Minimally Impaired - Suicidal Ideation Suicidal Ideation: No - Homicidal Ideation Homicidal Ideation: No Assessment/Plan 1) Patient denies any Depression, does not want amny Psych meds.. 2) Recemmended he has another eval after a month..
--- NOTE | 2019-10-26 17:56 | PN ---
Progress Note, Physician History of Present Illness: stable - Current Medication List Current Medications: Active Medications Chlordiazepoxide HCl (Librium -) 25 mg PO Q4H PRN PRN Reason: WITHDRAWAL(CONT SUBST) Stop: 10/27/19 23:59 Chlordiazepoxide HCl (Librium -) 10 mg PO [id number] [facility] Stop: 10/26/19 23:01 Last Admin: 10/26/19 17:12 Dose: 10 mg Documented by: Chlordiazepoxide HCl (Librium -) 10 mg PO Q12H [facility] Stop: 10/27/19 17:01 Chlordiazepoxide HCl (Librium -) 10 mg PO Q4H PRN PRN Reason: WITHDRAWAL(CONT SUBST) Stop: 10/29/19 00:00 Chlordiazepoxide HCl (Librium -) 10 mg PO ONCE@0500 ONE Stop: 10/28/19 05:01 Folic Acid (Folic Acid -) 1 mg PO DAILY [facility] Last Admin: 10/26/19 10:06 Dose: 1 mg Documented by: Heparin Sodium (Porcine) (Heparin -) 5,000 unit SQ BID [facility] Last Admin: 10/26/19 10:06 Dose: 5,000 unit Documented by: Potassium Chloride/Dextrose/Sod Cl (D5-1/2ns+20 Meq Kcl -) 20 meq in 1,000 mls @ 125 mls/hr IV ASDIR [facility] Last Admin: 10/26/19 10:07 Dose: 125 mls/hr Documented by: Metoclopramide HCl (Reglan Injection -) 10 mg IVPB Q8H [facility] Last Admin: 10/26/19 17:12 Dose: 10 mg Documented by: Ondansetron HCl (Zofran Injection) 4 mg IVPB Q4H PRN PRN Reason: NAUSEA AND/OR VOMITING Pantoprazole Sodium (Protonix Iv) 40 mg IVPUSH BID [facility] Last Admin: 10/26/19 10:06 Dose: 40 mg Documented by: Thiamine HCl (Vitamin B1 -) 100 mg PO DAILY [facility] Last Admin: 10/26/19 10:07 Dose: 100 mg Documented by: - Objective Vital Signs: Vital Signs Temperature 98.2 F 10/26/19 14:00 Pulse Rate 98 H 10/26/19 14:00 Respiratory Rate 18 10/26/19 09:00 Blood Pressure 90/54 L 10/26/19 14:00 O2 Sat by Pulse Oximetry (%) 100 10/26/19 09:00 Constitutional: Yes: No Distress HENT: Yes: Atraumatic Neck: Yes: Supple Cardiovascular: Yes: Regular Rate and Rhythm Respiratory: Yes: CTA Bilaterally Gastrointestinal: Yes: Normal Bowel Sounds Extremities: Yes: WNL Neurological: Yes: Alert, Oriented Labs: CBC, BMP 10/26/19 05:16 10/26/19 05:16 Problem List - Problems (1) Alcoholic pancreatitis Assessment/Plan: enzymes coming down on full liquid diet Code(s): K85.20 - ALCOHOL INDUCED ACUTE PANCREATITIS WITHOUT NECROSIS OR INFCT Qualifiers: Chronicity: acute Acute pancreatitis complication: unspecified Qualified Code(s): K85.20 - Alcohol induced acute pancreatitis without necrosis or infection (2) Nausea & vomiting Assessment/Plan: prn zofran Code(s): R11.2 - NAUSEA WITH VOMITING, UNSPECIFIED Qualifiers: Vomiting type: unspecified Vomiting Intractability: non-intractable Qualified Code(s): R11.2 - Nausea with vomiting, unspecified (3) Alcohol withdrawal Code(s): F10.239 - ALCOHOL DEPENDENCE WITH WITHDRAWAL, UNSPECIFIED Assessment/Plan COVERING FOR DR GU TODAY
[2019-10-27] MEDS: METOCLOPRAMIDE HCL INJECTION 10 MG/2 ML VIAL IVPB SCH ×3 (00:33→17:06)
[2019-10-27] MEDS: chlordiazePOXIDE HCL 10 MG CAPSULE PO SCH ×2 (05:55→17:04)
[2019-10-27] MEDS: PANTOPRAZOLE SODIUM 40 MG VIAL IVPUSH SCH ×2 (09:03→22:13)
[2019-10-27] MEDS: HEPARIN NA (PORCINE) 5,000 UNITS/ML 1ML VIAL SQ SCH ×2 (09:03→22:13)
[2019-10-27] MEDS: FOLIC ACID 1 MG TABLET (FP) PO SCH (09:05)
[2019-10-27] MEDS: THIAMINE HCL 100 MG TABLET (FP) PO SCH (09:05)
--- NOTE | 2019-10-27 15:43 | PN ---
Progress Note, Physician History of Present Illness: NO COMPLAINTS - Current Medication List Current Medications: Active Medications Chlordiazepoxide HCl (Librium -) 25 mg PO Q4H PRN PRN Reason: WITHDRAWAL(CONT SUBST) Stop: 10/27/19 23:59 Chlordiazepoxide HCl (Librium -) 10 mg PO Q12H [facility] Stop: 10/27/19 17:01 Last Admin: 10/27/19 05:55 Dose: 10 mg Documented by: Chlordiazepoxide HCl (Librium -) 10 mg PO Q4H PRN PRN Reason: WITHDRAWAL(CONT SUBST) Stop: 10/29/19 00:00 Chlordiazepoxide HCl (Librium -) 10 mg PO ONCE@0500 ONE Stop: 10/28/19 05:01 Folic Acid (Folic Acid -) 1 mg PO DAILY [facility] Last Admin: 10/27/19 09:05 Dose: 1 mg Documented by: Heparin Sodium (Porcine) (Heparin -) 5,000 unit SQ BID [facility] Last Admin: 10/27/19 09:03 Dose: 5,000 unit Documented by: Potassium Chloride/Dextrose/Sod Cl (D5-1/2ns+20 Meq Kcl -) 20 meq in 1,000 mls @ 125 mls/hr IV ASDIR [facility] Last Admin: 10/26/19 21:00 Dose: 125 mls/hr Documented by: Metoclopramide HCl (Reglan Injection -) 10 mg IVPB Q8H [facility] Last Admin: 10/27/19 07:55 Dose: 10 mg Documented by: Ondansetron HCl (Zofran Injection) 4 mg IVPB Q4H PRN PRN Reason: NAUSEA AND/OR VOMITING Pantoprazole Sodium (Protonix Iv) 40 mg IVPUSH BID [facility] Last Admin: 10/27/19 09:03 Dose: 40 mg Documented by: Thiamine HCl (Vitamin B1 -) 100 mg PO DAILY [facility] Last Admin: 10/27/19 09:05 Dose: 100 mg Documented by: - Objective Vital Signs: Vital Signs Temperature 98.9 F 10/27/19 14:00 Pulse Rate 101 H 10/27/19 14:00 Respiratory Rate 18 10/27/19 09:00 Blood Pressure 101/57 L 10/27/19 14:00 O2 Sat by Pulse Oximetry (%) 100 10/27/19 09:00 Constitutional: Yes: No Distress HENT: Yes: Atraumatic Neck: Yes: Supple Cardiovascular: Yes: Regular Rate and Rhythm Respiratory: Yes: CTA Bilaterally Gastrointestinal: Yes: Normal Bowel Sounds Extremities: Yes: WNL Edema: No Neurological: Yes: Alert, Oriented Labs: CBC, BMP 10/26/19 05:16 10/26/19 05:16 Problem List - Problems (1) Alcoholic pancreatitis Assessment/Plan: monitor enzymes on fat free diet today Code(s): K85.20 - ALCOHOL INDUCED ACUTE PANCREATITIS WITHOUT NECROSIS OR INFCT Qualifiers: Chronicity: acute Acute pancreatitis complication: unspecified Qualified Code(s): K85.20 - Alcohol induced acute pancreatitis without necrosis or infection (2) Nausea & vomiting Assessment/Plan: resolved Code(s): R11.2 - NAUSEA WITH VOMITING, UNSPECIFIED Qualifiers: Vomiting type: unspecified Vomiting Intractability: non-intractable Qualified Code(s): R11.2 - Nausea with vomiting, unspecified (3) Alcohol withdrawal Assessment/Plan: try to join rehab/AA Code(s): F10.239 - ALCOHOL DEPENDENCE WITH WITHDRAWAL, UNSPECIFIED Assessment/Plan COVERING FOR DR GU TODAY
--- NOTE | 2019-10-27 16:07 | PN.GI ---
GI Progress Note Subjective: Following up on 34 y.o. male admitted for presumptive dx of alcoholic pancreatitis from alcohol abuse. He has been drinking alcohol excessively for the past 2 years. Drinks 1-2 pints of liquor per day. Denies abdominal pain. 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 No: Firm/Rigid, Guarding, Hepatomegaly, Mass, Pulsatile Mass, Splenomegaly, Tenderness Labs: CBC, BMP 10/26/19 05:16 10/26/19 05:16 Problem List - Problems (1) Alcoholic pancreatitis Assessment/Plan: resolving IV hydration Ask to join AA low fat diet Code(s): K85.20 - ALCOHOL INDUCED ACUTE PANCREATITIS WITHOUT NECROSIS OR INFCT Qualifiers: Chronicity: acute Acute pancreatitis complication: unspecified Qualified Code(s): K85.20 - Alcohol induced acute pancreatitis without necrosis or infection (2) Nausea & vomiting Assessment/Plan: IV Zofran, pantoprazole , reglan IV hydration Code(s): R11.2 - NAUSEA WITH VOMITING, UNSPECIFIED Qualifiers: Vomiting type: unspecified Vomiting Intractability: non-intractable Qualified Code(s): R11.2 - Nausea with vomiting, unspecified
[2019-10-27] MEDS: D5-1/2NS+20 MEQ KCL - 20 MEQ/1,000 ML INFUS.BAG IV SCH (17:06)
[2019-10-28] MEDS ORDERED: chlordiazePOXIDE HCL 10 MG CAPSULE PO PRN
[2019-10-28] MEDS ORDERED: chlordiazePOXIDE HCL 10 MG CAPSULE PO ONE (05:00)
[2019-10-28] MEDS: METOCLOPRAMIDE HCL INJECTION 10 MG/2 ML VIAL IVPB SCH ×3 (10:08→17:32)
[2019-10-28] MEDS: FOLIC ACID 1 MG TABLET (FP) PO SCH (10:08)
[2019-10-28] MEDS: PANTOPRAZOLE SODIUM 40 MG VIAL IVPUSH SCH ×2 (10:08→21:37)
[2019-10-28] MEDS: HEPARIN NA (PORCINE) 5,000 UNITS/ML 1ML VIAL SQ SCH ×2 (10:09→21:37)
[2019-10-28] MEDS: THIAMINE HCL 100 MG TABLET (FP) PO SCH (10:09)
--- NOTE | 2019-10-28 16:03 | PN.GI ---
GI Progress Note Subjective: Following up on 34 y.o. male admitted for presumptive dx of alcoholic pancreatitis from alcohol abuse. He has been drinking alcohol excessively for the past 2 years. Drinks 1-2 pints of liquor per day. Denies abdominal pain. 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 - Objective Vital Signs: Vital Signs Temperature 98.2 F 10/28/19 15:00 Pulse Rate 98 H 10/28/19 15:00 Respiratory Rate 20 10/28/19 15:00 Blood Pressure 110/66 10/28/19 15:00 O2 Sat by Pulse Oximetry (%) 100 10/28/19 09:00 Constitutional: No Distress, Calm Eyes: Yes: Conjunctiva Clear, EOM Intact HENT: Yes: Atraumatic Neck: Yes: Supple, Trachea Midline Cardiovascular: Yes: Regular Rate and Rhythm Respiratory: Yes: Regular, CTA Bilaterally Gastrointestinal Inspection: No: Distention ...Auscultate: Yes: Normoactive Bowel Sounds Labs: CBC, BMP 10/26/19 05:16 10/26/19 05:16 Problem List - Problems (1) Alcoholic pancreatitis Assessment/Plan: resolving IV hydration Ask to join AA low fat diet Code(s): K85.20 - ALCOHOL INDUCED ACUTE PANCREATITIS WITHOUT NECROSIS OR INFCT Qualifiers: Chronicity: acute Acute pancreatitis complication: unspecified Qualified Code(s): K85.20 - Alcohol induced acute pancreatitis without necrosis or infection (2) Nausea & vomiting Assessment/Plan: resolving IV Zofran, pantoprazole , reglan IV hydration Code(s): R11.2 - NAUSEA WITH VOMITING, UNSPECIFIED Qualifiers: Vomiting type: unspecified Vomiting Intractability: non-intractable Qualified Code(s): R11.2 - Nausea with vomiting, unspecified
[2019-10-28] MEDS: D5-1/2NS+20 MEQ KCL - 20 MEQ/1,000 ML INFUS.BAG IV SCH ×2 (17:31→20:25)
--- NOTE | 2019-10-28 21:46 | PN ---
Progress Note, Physician - Current Medication List Current Medications: Active Medications Chlordiazepoxide HCl (Librium -) 10 mg PO Q4H PRN PRN Reason: WITHDRAWAL(CONT SUBST) Stop: 10/29/19 00:00 Folic Acid (Folic Acid -) 1 mg PO DAILY [facility] [place] Last Admin: 10/28/19 10:08 Dose: 1 mg Documented by: Heparin Sodium (Porcine) (Heparin -) 5,000 unit SQ BID [facility] [place] Last Admin: 10/28/19 21:37 Dose: 5,000 unit Documented by: Potassium Chloride/Dextrose/Sod Cl (D5-1/2ns+20 Meq Kcl -) 20 meq in 1,000 mls @ 125 mls/hr IV ASDIR [facility] [place] Last Admin: 10/28/19 20:25 Dose: 125 mls/hr Documented by: Metoclopramide HCl (Reglan Injection -) 10 mg IVPB Q8H [facility] [place] Last Admin: 10/28/19 17:32 Dose: 10 mg Documented by: Multivitamins/Minerals/Vitamin C (Tab-A-Vit -) 1 tab PO ONCE ONE Stop: 10/29/19 10:37 Ondansetron HCl (Zofran Injection) 4 mg IVPB Q4H PRN PRN Reason: NAUSEA AND/OR VOMITING Pantoprazole Sodium (Protonix Iv) 40 mg IVPUSH BID [facility] [place] Last Admin: 10/28/19 21:37 Dose: 40 mg Documented by: Thiamine HCl (Vitamin B1 -) 100 mg PO DAILY [facility] [place] Last Admin: 10/28/19 10:09 Dose: 100 mg Documented by: - Objective Vital Signs: Vital Signs Temperature 98.8 F 10/28/19 21:00 Pulse Rate 111 H 10/28/19 21:00 Respiratory Rate 18 10/28/19 21:00 Blood Pressure 112/65 10/28/19 21:00 O2 Sat by Pulse Oximetry (%) 96 10/28/19 21:00 Labs: CBC, BMP 10/26/19 05:16 10/26/19 05:16 Problem List - Problems (1) Alcoholic pancreatitis Code(s): K85.20 - ALCOHOL INDUCED ACUTE PANCREATITIS WITHOUT NECROSIS OR INFCT Qualifiers: Chronicity: acute Acute pancreatitis complication: unspecified Qualified Code(s): K85.20 - Alcohol induced acute pancreatitis without necrosis or infection (2) Nausea & vomiting Code(s): R11.2 - NAUSEA WITH VOMITING, UNSPECIFIED Qualifiers: Vomiting type: unspecified Vomiting Intractability: non-intractable Qualified Code(s): R11.2 - Nausea with vomiting, unspecified (3) Alcohol withdrawal Code(s): F10.239 - ALCOHOL DEPENDENCE WITH WITHDRAWAL, UNSPECIFIED (4) AA (alcohol abuse) Code(s): F10.10 - ALCOHOL ABUSE, UNCOMPLICATED
[2019-10-29] MEDS: METOCLOPRAMIDE HCL INJECTION 10 MG/2 ML VIAL IVPB SCH ×2 (00:26→10:47)
[2019-10-29 08:05] LABS: POTASSIUM 3.6 mmol/L (3.5-5.1)
[2019-10-29 08:25] LABS: ALBUMIN 2.4 g/dl (3.4-5.0); BILIRUBIN,TOTAL 0.6 mg/dL (0.2-1); BLOOD UREA NITROGEN 3.5 mg/dL (7-18); CALCIUM 7.8 mg/dL (8.5-10.1); CREATININE 0.6 mg/dL (0.55-1.3); TOT PROT 4.8 g/dl (6.4-8.2)
[2019-10-29] MEDS ORDERED: MULTIVITAMINS (DAILY MVI) TABLET (FP) PO ONE (10:36)
[2019-10-29] MEDS: HEPARIN NA (PORCINE) 5,000 UNITS/ML 1ML VIAL SQ SCH (10:47)
[2019-10-29] MEDS: PANTOPRAZOLE SODIUM 40 MG VIAL IVPUSH SCH (10:47)
[2019-10-29] MEDS: FOLIC ACID 1 MG TABLET (FP) PO SCH (10:47)
[2019-10-29] MEDS: THIAMINE HCL 100 MG TABLET (FP) PO SCH (10:47)
[2019-10-29 11:29] VITALS: BP 111/64; PULSE 96; TEMP 98.2
== END 2019-10-29 15:52 | disposition home or self-care (01) | DRG 282 ==
LOC: JER 19:08 → JERBED 21:23 → J4W 10-24 16:52
PROVIDERS: ADMIT Internal Medicine; ATTEND Internal Medicine
DX: K85.20 Alcohol induced acute pancreatitis without necrosis or infection (principal); R16.0 Hepatomegaly, not elsewhere classified; F10.230 Alcohol dependence with withdrawal, uncomplicated
CPT/HCPCS: 36415; 74176-TC; 76705-TC; 80053; 80307; 81003; 82150; 82550; 82553; 83690; 83735; 84132; 84484; 85025; 93005; 93010; 99285-25; J1644; U0003

== ENCOUNTER 2020-02-19 13:03 | Inpatient (IN) | payer OTHER ==
[2020-02-19] MEDS ORDERED: SODIUM CHLORIDE 1,000 ML IV STA ×2 (13:18→15:27)
[2020-02-19 14:51] LABS: ACTIVATED PTT 26.9 SECONDS (25.2-36.5)
[2020-02-19 14:56] LABS: INR 1.84 (0.82-1.09); PROTHROMBIN TIME (PATIENT) 19.8 SEC (10.2-13.0)
[2020-02-19 15:01] LABS: HEMATOCRIT 38.2 % (35.4-49); HEMOGLOBIN 13.3 GM/dl (11.7-16.9); MCH 35.2 pg (25.7-33.7); MCHC 34.8 g/dl (32.0-35.9); MEAN CELL VOLUME 101.2 fl (80-96); MEAN PLT VOLUME 12.9 fl (7.5-11.1); PLATELET COUNT 95 K/MM3 (134-434); RBC 3.77 M/mm3 (4.00-5.60); WHITE BLOOD COUNT 15.2 K/mm3 (4.0-10.8)
[2020-02-19 15:06] LABS: ALBUMIN 2.8 g/dl (3.4-5.0); BILIRUBIN,TOTAL 5.6 mg/dl (0.2-1); CALCIUM 7.7 mg/dl (8.5-10); CREATININE 1.6 mg/dl (0.55-1.3); TOT PROT 5.6 g/dl (6.4-8.2)
[2020-02-19 15:37] LABS: PLATELET ESTIMATE DECREASED
[2020-02-19] MEDS ORDERED: dilTIAZem HCL 50 MG/10 ML - 10 ML VIAL IVPUSH ONE ×2 (16:09→16:27)
[2020-02-19] MEDS ORDERED: dilTIAZem HCL 50 MG/10 ML - 10 ML VIAL ONE (16:19)
[2020-02-19 16:28] LABS: LIPASE 868 U/L (73-393)
[2020-02-19] MEDS ORDERED: METOPROLOL TARTRATE 5 MG/5 ML VIAL IVPUSH ONE (17:13)
[2020-02-19] MEDS ORDERED: NADOLOL 40 MG TABLET (FP) PO ONE (17:15)
[2020-02-19] MEDS ORDERED: METOPROLOL TARTRATE 5 MG/5 ML VIAL ONE (17:19)
[2020-02-19] MEDS ORDERED: ONDANSETRON 4 MG/2 ML VIAL ONE (20:14)
[2020-02-19] MEDS ORDERED: ONDANSETRON 4 MG TABLET PO ONE (20:14)
[2020-02-19 23:16] LABS: BASO % 0.1 % (0-2.0); EOS % 0.1 % (0-4.5); HEMATOCRIT 33.2 % (35.4-49); HEMOGLOBIN 10.9 GM/dL (11.7-16.9); LYMPH % 8.8 % (8-40); MCH 34.4 pg (25.7-33.7); MCHC 32.7 g/dl (32.0-35.9); MEAN CELL VOLUME 105.2 fl (80-96); MEAN PLT VOLUME 11.7 fl (7.5-11.1); MONO % 7.5 % (3.8-10.2); NEUT % 83.5 % (42.8-82.8); PLATELET COUNT 70 K/MM3 (134-434); RBC 3.16 M/mm3 (4.00-5.60); RDW 15.4 % (11.9-15.9); WHITE BLOOD COUNT 15.9 K/mm3 (4.0-10.0)
[2020-02-19 23:28] LABS: INR 2.85 (0.83-1.09); PROTHROMBIN TIME (PATIENT) 33.4 SEC (9.7-13.0)
[2020-02-19 23:43] LABS: CHLORIDE 87 mmol/L (98-107); SODIUM 123 mmol/L (136-145)
[2020-02-19 23:46] LABS: ALBUMIN 1.9 g/dl (3.4-5.0); ANION GAP 25 MMOL/L (8-16); CO2 12 mmol/L (21-32); GLUCOSE,RANDOM 179 mg/dL (74-106); MAGNESIUM 2.7 mg/dL (1.8-2.4)
[2020-02-19 23:49] LABS: CREATININE 1.8 mg/dL (0.55-1.3); SGPT/ALT 338 U/L (13-61)
[2020-02-19 23:50] LABS: BILIRUBIN,TOTAL 5.6 mg/dL (0.2-1); TOT PROT 4.4 g/dl (6.4-8.2)
[2020-02-19 23:52] LABS: ALK PHOS 186 U/L (45-117)
[2020-02-19 23:59] LABS: ANISOCYTOSIS 0; MACROCYTOSIS 2+; OVALOCYTE 1+; PLATELET ESTIMATE DECREASED; TARGET CELLS 1+
[2020-02-20 01:01] LABS: ALLENS TEST POSITIVE; ARTERIAL BLD GAS O2 SATURATION 99.8 mmHg (95-98); ARTERIAL BLOOD GAS BASE EXCESS -17.2 mmol/L (-2-2); ARTERIAL BLOOD GAS PO2 403.8 mmHg (80-100); ARTERIAL BLOOD GAS pH 7.263 (7.350-7.450); VENT MODE A/C
[2020-02-20 01:02] LABS: VENT RATE 18
[2020-02-20] MEDS ORDERED: SODIUM CHLORIDE 1,000 ML IV STA ×3 (01:08→22:04)
[2020-02-20 01:24] VITALS: BMI 24.2
[2020-02-20] MEDS ORDERED: PIPERACILLIN/TAZOB 4.5 GM 4.5 GM in DEXTROSE 5%-WATER 100 ML IVPB ONE (01:24)
[2020-02-20] MEDS: NOREPINEPHRINE BITARTRATE 8,000 MCG/500 ML BAG IVPB SCH (01:33)
[2020-02-20] MEDS ORDERED: DEXTROSE 50%-WATER - 25 GM/50 ML VIAL IVPUSH ONE ×2 (01:40→18:51)
[2020-02-20] MEDS ORDERED: DEXTROSE 50%-WATER - 25 GM/50 ML VIAL IVPUSH PRN (01:42)
[2020-02-20] MEDS ORDERED: DEXTROSE 5%-NORMAL SALINE 1,000 ML IV SCH (01:45)
[2020-02-20] MEDS ORDERED: SODIUM BICARBONATE 8.4% - 150 MEQ in DEXTROSE 5%-WATER - 950 ML IVPB SCH (01:45)
[2020-02-20] MEDS ORDERED: PIPERACILLIN/TAZOBACTAM 4.5 GM VIAL IVPB ONE (01:54)
[2020-02-20] MEDS ORDERED: DEXTROSE 5%-WATER 100 ML IVPB ONE (01:54)
[2020-02-20 01:55] LABS: URINE AMPHETAMINES NEGATIVE ng/ml (CUTOFF=500); URINE BARBITURATES NEGATIVE ng/ml (CUTOFF=200)
[2020-02-20 01:56] LABS: PHENCYCLIDINE,URINE NEGATIVE ng/ml (CUTOFF=25)
[2020-02-20] MEDS ORDERED: VASOPRESSIN 20 UNITS/ML VIAL IV ONE ×2 (02:01→07:31)
[2020-02-20] MEDS ORDERED: ARTIFICIAL TEARS (POLYVINYL ALCOHOL) OPTH DROPS OU PRN (02:01)
[2020-02-20] MEDS ORDERED: FENTANYL IVPB 500 MCG/100 ML BAG IVPB ONE ×3 (02:01→23:04)
[2020-02-20 02:05] LABS: COCAINE, UR NEGATIVE ng/ml (CUTOFF=300); METHADONE, UR NEGATIVE ng/ml (CUTOFF=300); OPIATES, URI NEGATIVE ng/ml (CUTOFF=300); URINE BENZODIAZEPINES NEGATIVE ng/ml (CUTOFF=200)
[2020-02-20] MEDS: SODIUM BICARBONATE 8.4% - 150 MEQ in DEXTROSE 5%-WATER - 1,000 ML IVPB SCH (02:11)
[2020-02-20] MEDS: VASOPRESSIN 40 UNITS in SODIUM CHLORIDE 98 ML IVPB SCH (02:11)
[2020-02-20] MEDS: FENTANYL D5W IVPB 1,000 MCG/200 ML BAG IVPB SCH ×2 (02:12→22:56)
[2020-02-20 02:20] LABS: PHOSPHOROUS 9.6 mg/dL (2.5-4.9)
[2020-02-20 06:22] LABS: ARTERIAL BLOOD GAS BASE EXCESS -21.5 mmol/L (-2-2); ARTERIAL BLOOD GAS PO2 193.5 mmHg (80-100)
[2020-02-20 06:43] LABS: VENT MODE A/C; VENT RATE 20
[2020-02-20 06:44] LABS: ARTERIAL BLOOD GAS pH 7.135 (7.350-7.450)
[2020-02-20 07:23] LABS: HEMATOCRIT 36.7 % (35.4-49); HEMOGLOBIN 11.7 GM/dL (11.7-16.9); MCHC 31.9 g/dl (32.0-35.9); MEAN CELL VOLUME 106.6 fl (80-96); MEAN PLT VOLUME 12.8 fl (7.5-11.1); PLATELET COUNT 48 K/MM3 (134-434); RBC 3.44 M/mm3 (4.00-5.60); RDW 15.2 % (11.9-15.9); WHITE BLOOD COUNT 18.3 K/mm3 (4.0-10.0)
[2020-02-20 07:26] LABS: INR 3.57 (0.83-1.09); PROTHROMBIN TIME (PATIENT) 41.6 SEC (9.7-13.0)
[2020-02-20 07:29] LABS: ACTIVATED PTT 32.6 SECONDS (25.2-36.5)
[2020-02-20 07:44] LABS: MAGNESIUM 2.6 mg/dL (1.8-2.4)
[2020-02-20 07:46] LABS: CREATININE 2.3 mg/dL (0.55-1.3)
[2020-02-20 07:47] LABS: BILIRUBIN,DIRECT 5.4 mg/dL (0.0-0.2)
[2020-02-20 07:48] LABS: BILIRUBIN,TOTAL 6.8 mg/dL (0.2-1); TOT PROT 4.7 g/dl (6.4-8.2)
[2020-02-20 07:49] LABS: N-TERMINAL BNP 4704.2 pg/ml (5-125)
[2020-02-20] MEDS ORDERED: PHYTONADIONE 10 MG/1 ML AMP ONE (08:08)
[2020-02-20] MEDS ORDERED: PHYTONADIONE 10 MG/1 ML AMP IVPB ONE (09:27)
[2020-02-20 10:25] LABS: PHOSPHOROUS 10.7 mg/dL (2.5-4.9)
[2020-02-20] MEDS: SODIUM BICARBONATE 8.4% 50 MEQ/50 ML DISP.SYRIN IVPUSH SCH ×2 (10:44→11:48)
[2020-02-20] MEDS ORDERED: MIDAZOLAM 100 MG/100 ML MG IVPB ONE (11:32)
[2020-02-20] MEDS ORDERED: VANCOMYCIN 1 GRAM (PRE-DOCKED) 1,000 MG/250 ML BAG IVPB ONE (11:45)
[2020-02-20] MEDS ORDERED: MIDAZOLAM IN 0.9 % SOD.CHLORID 100 MG/100 ML PLAST..BAG IVPB SCH (11:45)
[2020-02-20] MEDS ORDERED: PIPERACILLIN/TAZOBACTAM 3.375 GM VIAL IVPB ONE ×2 (11:52→17:22)
[2020-02-20] MEDS ORDERED: DEXTROSE 5%-WATER - 50 ML IVPB ONE ×2 (11:52→17:22)
[2020-02-20] MEDS: PIPERACILLIN/TAZOB 3.375 GM 3.375 GM in DEXTROSE 5%-WATER - 50 ML IVPB SCH ×2 (11:54→17:29)
[2020-02-20] MEDS ORDERED: CALCIUM GLUCONATE 10% - 1,000 MG/10 ML VIAL IVPB ONE (12:39)
[2020-02-20] MEDS ORDERED: CALCIUM CHLORIDE 1 GM/10 ML *DISP.SYRIN IVPB ONE (22:04)
[2020-02-21] MEDS ORDERED: DEXTROSE 5%-WATER - 50 ML IVPB ONE ×2 (01:16→09:00)
[2020-02-21] MEDS ORDERED: PIPERACILLIN/TAZOBACTAM 3.375 GM VIAL IVPB ONE ×3 (01:16→09:56)
[2020-02-21] MEDS: PIPERACILLIN/TAZOB 3.375 GM 3.375 GM in DEXTROSE 5%-WATER - 50 ML IVPB SCH ×2 (01:40→09:55)
[2020-02-21] MEDS: NOREPINEPHRINE BITARTRATE 8,000 MCG/500 ML BAG IVPB SCH (01:44)
[2020-02-21] MEDS: SODIUM BICARBONATE 8.4% - 150 MEQ in DEXTROSE 5%-WATER - 1,000 ML IVPB SCH (01:44)
[2020-02-21] MEDS: VASOPRESSIN 40 UNITS in SODIUM CHLORIDE 98 ML IVPB SCH (01:45)
[2020-02-21] MEDS: FENTANYL D5W IVPB 1,000 MCG/200 ML BAG IVPB SCH (01:45)
[2020-02-21] MEDS ORDERED: ALBUMIN HUMAN 25% 12.5 GM/50 ML VIAL IVPB SCH (03:15)
[2020-02-21] MEDS: ALBUMIN HUMAN 25% 100 ML VIAL IVPB SCH ×3 (04:00→06:36)
[2020-02-21] MEDS ORDERED: NOREPINEPHRINE BITARTRATE 4 MG/4 ML ML IV ONE (05:32)
[2020-02-21 06:21] LABS: ARTERIAL BLD GAS O2 SATURATION 98.9 mmHg (95-98); ARTERIAL BLOOD GAS BASE EXCESS -14.6 mmol/L (-2-2); ARTERIAL BLOOD GAS PO2 159.4 mmHg (80-100); ARTERIAL BLOOD GAS pH 7.311 (7.350-7.450)
[2020-02-21 06:22] LABS: VENT MODE A/C; VENT RATE 30
[2020-02-21 06:53] LABS: BASO % 0.1 % (0-2.0); EOS % 0.1 % (0-4.5); HEMATOCRIT 31.2 % (35.4-49); HEMOGLOBIN 10.5 GM/dL (11.7-16.9); LYMPH % 7.8 % (8-40); MCHC 33.5 g/dl (32.0-35.9); MEAN CELL VOLUME 104.3 fl (80-96); MEAN PLT VOLUME 12.5 fl (7.5-11.1); MONO % 4.9 % (3.8-10.2); NEUT % 87.1 % (42.8-82.8); RBC 2.99 M/mm3 (4.00-5.60); RDW 15.2 % (11.9-15.9); WHITE BLOOD COUNT 17.8 K/mm3 (4.0-10.0)
[2020-02-21 07:02] LABS: PLATELET COUNT 32 K/MM3 (134-434)
[2020-02-21 07:06] LABS: CHLORIDE 79 mmol/L (98-107)
[2020-02-21 07:15] LABS: ALBUMIN 2.5 g/dl (3.4-5.0)
[2020-02-21 07:16] LABS: BLOOD UREA NITROGEN 50.8 mg/dL (7-18); GLUCOSE,RANDOM 370 mg/dL (74-106); TOT PROT 4.4 g/dl (6.4-8.2)
[2020-02-21 07:17] LABS: BILIRUBIN,TOTAL 7.1 mg/dL (0.2-1)
[2020-02-21 07:18] LABS: CO2 11 mmol/L (21-32); CREATININE 3.3 mg/dL (0.55-1.3); MAGNESIUM 1.9 mg/dL (1.8-2.4)
[2020-02-21] MEDS ORDERED: LACTATED RINGERS SOLUTION 1000 ML INFUS.BAG IV ONE (08:25)
[2020-02-21] MEDS ORDERED: PHENYLEPHRINE NS PREMIX 50,000 MCG/500 ML BAG CVP SCH (08:30)
[2020-02-21] MEDS ORDERED: PHENYLEPHRINE HCL 10 MG/1 ML SINGLE DOSE VIAL ONE (08:33)
[2020-02-21] MEDS ORDERED: DOPAMINE HCL 400,000 MCG in SODIUM CHLORIDE 240 ML IV SCH (09:00)
[2020-02-21] MEDS ORDERED: DOPAMINE 400 MG/D5W - 400,000 MCG/250 ML INFUS.BAG IVPB ONE (09:01)
[2020-02-21] MEDS ORDERED: FLUDROCORTISONE ACETATE 0.1 MG TABLET (FP) PO SCH (10:00)
[2020-02-21] MEDS ORDERED: PANTOPRAZOLE SODIUM 40 MG VIAL IVPUSH SCH (10:00)
[2020-02-21] MEDS ORDERED: HYDROCORTISONE SOD SUCCINATE 100 MG/2 ML VIAL IVPB SCH (10:00)
[2020-02-21 10:12] LABS: ALK PHOS 223 U/L (45-117); SGOT/AST > 20000 U/L (15-37); SGPT/ALT 1261 U/L (13-61)
[2020-02-21 10:51] LABS: ANION GAP 30 MMOL/L (8-16); SODIUM 120 mmol/L (136-145)
[2020-02-21 11:03] LABS: ANISOCYTOSIS 1+; MACROCYTOSIS 0; OVALOCYTE 1+; PLATELET ESTIMATE DECREASED; TEAR DROP CELLS 1+
[2020-02-21 11:41] LABS: PHOSPHOROUS 9.7 mg/dL (2.5-4.9)
[2020-02-21 15:16] VITALS: BP 53/25; PULSE 33; TEMP 95.5
[2020-02-21] MEDS ORDERED: PIPERACILLIN/TAZOB 2.25 GM 2.25 GM in DEXTROSE 5%-WATER - 50 ML IVPB SCH (18:00)
== END 2020-02-21 16:30 | disposition expired | DRG 951 ==
LOC: FER 13:03 → JERBED 21:00 → J4W 21:57 → JICU 02-20 01:50
PROVIDERS: ADMIT Internal Medicine; ATTEND Internal Medicine Pulmonary Disease
PROC: 0CHY7BZ Insertion of Airway into Mouth and Throat, Via Natural or Artificial Opening (ICD-10-PCS; principal; 2020-02-19)
PROC: 5A1945Z Respiratory Ventilation, 24-96 Consecutive Hours (ICD-10-PCS; 2020-02-19)
PROC: 0DH673Z Insertion of Infusion Device into Stomach, Via Natural or Artificial Opening (ICD-10-PCS; 2020-02-19)
PROC: 5A12012 Performance of Cardiac Output, Single, Manual (ICD-10-PCS; 2020-02-20)
PROC: 05HN33Z Insertion of Infusion Device into Left Internal Jugular Vein, Percutaneous Approach (ICD-10-PCS; 2020-02-20)
PROC: B544ZZA Ultrasonography of Left Jugular Veins, Guidance (ICD-10-PCS; 2020-02-20)
DX: I48.92 Unspecified atrial flutter (principal); E87.1 Hypo-osmolality and hyponatremia; I46.9 Cardiac arrest, cause unspecified; F10.239 Alcohol dependence with withdrawal, unspecified; F10.288 Alcohol dependence with other alcohol-induced disorder; E16.2 Hypoglycemia, unspecified; D72.829 Elevated white blood cell count, unspecified; I42.6 Alcoholic cardiomyopathy; D69.6 Thrombocytopenia, unspecified; R68.0 Hypothermia, not associated with low environmental temperature; I47.1 Supraventricular tachycardia; R57.8 Other shock; N17.9 Acute kidney failure, unspecified; A41.9 Sepsis, unspecified organism; K85.20 Alcohol induced acute pancreatitis without necrosis or infection; J96.01 Acute respiratory failure with hypoxia; K72.00 Acute and subacute hepatic failure without coma; R74.01 Elevation of levels of liver transaminase levels; R00.1 Bradycardia, unspecified; I95.9 Hypotension, unspecified; D68.9 Coagulation defect, unspecified
CPT/HCPCS: 36415; 36600; 70450-TC; 71045-TC-FY; 73610-TC-LT-FY; 73610-TC-RT-FY; 73630-TC-LT; 73630-TC-RT-FY; 76705-TC; 80048; 80053; 80076; 80307; 82140; 82550; 82553; 82803; 82962; 83605; 83690; 83735; 83880; 84100; 84484; 85025; 85027; 85379; 85610; 85730; 87040; 87070; 87086; 87186; 87205; 93005; 93306-TC; 94002; 99285-25; C9803; G0480; U0003